=== PATIENT | female | born 1985 | race Two or more races ===

== ENCOUNTER 2020-10-14 16:18 | Emergency (ER) | payer OTHER ==
[~2020-10-14] VITALS: Ht 157.5 cm; Wt 88.3 kg
--- NOTE | 2020-10-14 16:37 | NUR ---
Pt came in with a fever of 102F, chills, body aches, and occasional cough. Pt states that she has not been near anyone who has been sick or had covid. Symptoms have been occuring snc. Pt has found relief of some symptoms with Tylenol Cold and Flu. Placed on continious BP and O2 monitors, RA sat of 98%, no difficulty of breathing noted, positioned for comfort, given a warm blanket. GENA
[2020-10-14 17:00] LABS: MICROSCOPIC AUTO
[2020-10-14] MEDS ORDERED: MORPHINE SULFATE 4 MG/ML, 1ML IVPush PRN (17:00)
[2020-10-14] MEDS ORDERED: SODIUM CHLORIDE 0.9% 1,000ML IVBOLUS ONE (17:00)
[2020-10-14] MEDS ORDERED: ACETAMINOPHEN 500 MG TABLET PO ONE (17:00)
[2020-10-14] MEDS ORDERED: ONDANSETRON 2MG/ML, 2ML IVPush ONE (17:00)
[2020-10-14] MEDS ORDERED: ACETAMINOPHEN 500 MG TABLET ONE (17:02)
[2020-10-14] MEDS ORDERED: ONDANSETRON 2MG/ML, 2ML ONE (17:02)
[2020-10-14] MEDS ORDERED: MORPHINE SULFATE 4 MG/ML, 1ML ONE (17:02)
[2020-10-14 17:24] LABS: ALANINE AMINOTRANSFERASE 26 U/L (12-78); ALBUMIN 3.2 g/dL (3.4-5.0); ANION GAP 8 mmol/L (5-15); CALCIUM 8.8 mg/dL (8.5-10.1); CHLORIDE 104 mmol/L (98-107); CREATININE 0.64 mg/dL (0.55-1.02)
[2020-10-14 17:25] LABS: BASOPHILS % (AUTO) 0 % (0-1); EOSINOPHILS % (AUTO) 0 % (1-7); LYMPHOCYTES % (AUTO) 8 % (22-44); MEAN CORPUSCULAR HEMOGLOBIN 27.8 pg (27.0-34.8); MEAN PLATELET VOLUME 7.4 fL (7.4-10.4); MONOCYTES % (AUTO) 7 % (2-9); NEUTROPHILS % (AUTO) 84 % (42-75); PLATELET COUNT 272 x10^3/uL (130-400); RED BLOOD COUNT 4.71 x10^6/uL (3.82-5.3)
[2020-10-14 17:28] LABS: ALKALINE PHOSPHATASE 81 U/L (45-117); BILIRUBIN,TOTAL 0.9 mg/dL (0.2-1.0); TOTAL PROTEIN 7.2 g/dL (6.4-8.2)
[2020-10-14 17:29] LABS: MD NO
--- NOTE | 2020-10-14 17:30 | NUR ---
Pt tolerated IV placement, medicated per mar, IVF running, no other requests at this time.
--- NOTE | 2020-10-14 17:50 | NUR ---
Pt states that pain has diminished since admin of pain meds
[2020-10-14] MEDS ORDERED: CEFTRIAXONE 1,000 MG in DEXTROSE 5% 50 ML IVPB ONE (18:30)
--- NOTE | 2020-10-14 18:41 | NUR ---
Pt to CT
[2020-10-14 20:16] VITALS: BP 109/71
--- NOTE | 2020-10-14 20:18 | NUR ---
Reviewed discharge plan of care. Patient ambulated to d/c lobby in care of significant other Reviewed sxs to watch for-teach back successful
== END 2020-10-14 20:18 | disposition home or self-care (01) ==
LOC: ED 16:48
DX: N10 Acute pyelonephritis (principal); M54.5 Low back pain
CPT/HCPCS: 36415; 74176; 80053; 81001; 84703; 85025; 87077; 87086; 87186; 96361; 96365; 96366; 96375; 99284; J0696; J2270; J2405; J7030